=== PATIENT | male | born 1995 | race Caucasian/White ===

== ENCOUNTER 2025-06-08 14:47 | Outpatient (RCR) | payer OTHER, SELFPAY | END 2025-07-08 23:59 | disposition home or self-care (01) | LOC: SPT 14:47 | PROVIDERS: Visit Provider Internal Medicine | DX: S32.012D Unstable burst fracture of first lumbar vertebra, subsequent encounter for fracture with routine healing (principal); X58.XXXD Exposure to other specified factors, subsequent encounter | CPT/HCPCS: 97110; 97161 ==

== ENCOUNTER 2025-06-13 17:25 | Emergency (ER) | payer OTHER, SELFPAY ==
--- OUTSIDE RECORDS SUMMARY | 2024-10-02 03:00 | XMS_ITS ---
Author Organization [facility] [place] Address [address] [place] [address] Care Team Providers Care Manager Mechanical Maintenance Name Role Phone Irvin Dunn Primary Care Provider REASON FOR VISIT 1 week f/u Social History Sex Assigned At : Social History Observation Description Sex Assigned At Male Encounters Encounter Location Date Provider Diagnosis [facility] [place] [address] [place] [address] 10/02/2024 Irvin Dunn Plan Of Treatment No Information Progress Notes * Gigi FORTEDOB:1994 (30 yo M)Acc No.[id number]:10/02/2024 Progress Note Patient: Coco Gigi cage Provider: Michelle Dunn DO :1995 A ge:29 Y S ex:Male Date:10/02/2024 Address:[address] [place] [phone], [id number] Subjective: * Chief Complaints: * 1 week f/u Care Plan Details* * Electronic signature of Bautista Dunn DO on 06/13/2025 at 02:30 PM AKDT Sign off status: Pending * Provider: Michelle Dunn DO Date: 1 12/02/2023 Generated for Juhi lee/Nikolay/eTransmitting on: 0 06/13/2025 02:30 PM DEMETRA
[2025-06-13 17:30] VITALS: BP 104/75; PULSE 98; RESP 14; TEMP 36.9; O2SAT 98; BMI 31.8
--- OUTSIDE RECORDS SUMMARY | 2025-06-13 17:31 | XMS_ITS | Encounter Summary ---
Author Organization [facility] Address [address] [place] [address] Care Team Providers Care Caustic Strength Inspector Name Role Phone Unavailable Primary Care Provider Unavailabl e Encounter Details Date Type Department Care Team (Late st Contact Info) Description 06/12/2025 External Device Data [facility] [facility]CTION Provider, Abstract NO ADDRESS ON FILE Social History Tobacco Use Types Packs/Day Years Used Date Smoking Tobacco: Never Alcohol Use Standard Drinks/Week Comments Never 0 (1 standard drink = 0.6 oz pur e alcohol) Sex and Gender Information Value Date Recorded Sex Assigned at Not on file Legal Sex Male 12:19 PM CDT Gender Identity Not on file Sexual Orientation Not on file documented as of this encounter Plan of Treatment Upcoming Encounters Date Type Department Care Team (Late st Contact Info) Description 07/30/2025 11:30 AM CDT Office Visit [facility] [address] [place] [phone] Yeison Gómez PA [address] [place] [phone] documented as of this encounter Visit Diagnoses Not on filedocumented in this encounter
--- OUTSIDE RECORDS SUMMARY | 2025-06-13 17:31 | XMS_ITS | Encounter Summary ---
Author Organization [facility] Address [address] [place] [address] Care Team Providers Care Legal Support Manager Name Role Phone Unavailable Primary Care Provider Unavailabl e Reason for Visit * Reason Comments Med Refill Encounter Details Date Type Department Care Team (Late st Contact Info) Description 06/11/2025 Refill [facility] Neurosurgery [address] [place] [phone] Cruz Kaiser MD [address] [place] [phone] Closed unstable burst fracture of first lumbar vertebra, initial encounter ([facility]) Social History Tobacco Use Types Packs/Day Years Used Date Smoking Tobacco: Never Alcohol Use Standard Drinks/Week Comments Never 0 (1 standard drink = 0.6 oz pur e alcohol) Sex and Gender Information Value Date Recorded Sex Assigned at Not on file Legal Sex Male 12:19 PM CDT Gender Identity Not on file Sexual Orientation Not on file documented as of this encounter Miscellaneous Notes * Telephone Encounter - Candida Rubi CMA - 06/11/2025 8:59 AM CDT DOS: 05/15/2025 EO08/15/2025 T12-L2 decompression T10-L3 fusion Last seen: 05/31/2025 Next appointment: 07/30/2025 Last fill: 06/05/2025 documented in this encounter Plan of Treatment Upcoming Encounters Date Type Department Care Team (Late st Contact Info) Description 07/30/2025 11:30 AM CDT Office Visit [facility] Neurosurgery [address] [place] [phone] Yeison Gómez PA [address] [place] [phone] documented as of this encounter Visit Diagnoses Diagnosis Closed unstable burst fracture of first lumbar vertebra, initial encounter ([facility]) documented in this encounter
--- OUTSIDE RECORDS SUMMARY | 2025-06-13 17:31 | XMS_ITS | Patient Health Record ---
Author Organization [facility] Address [address] [address] Care Team Providers Care Tracer Lathe Set Up Operator Name Role Phone Irvin Dunn Primary Care Provider Homero Provider, 40 min template Unavailable Unavailable Allergies No Known Allergies Reason For Referral No Information Medications Medication SIG (Take, Route, Frequency, Duration) Notes Start Date End Date Status lamoTRIgine 25 MG Tablet 1 tablet Orally twice a day; Duration: 14 days 09/27/2024 Active Escitalopram Oxalate 20 MG Tablet 1 tablet Orally Once a day; Duration: 30 days Patient instructed to take 1/2 tablet for first week. Aware of caution needed with SSRI and bipolar disorder. Resuming regimen that was most recently effective for patient. 09/27/2024 Active Social History Tobacco Use: Social History Observation Description Date Details (start date - stop date) Former Smoker 11/08/2012 - 11/08/2021 Sex Assigned At : Social History Observation Description Sex Assigned At Male Social History General Social Info Question Answer Notes Communication Needs Do you have any vision impairment? No Do you have any hearing impairment? No Do you have any speech impairment? No Social Functioning Do you enjoy social interactions? N o Do you suffer from social anxiety? Yes Have you ever used drugs oth er than for medical reasons Have you used drugs other than those for medical reasons? No AUDIT-C (Standard) Did you have a drink containing alcohol in the past year? No Points 0 Interpretation Negative Tobacco Control (Standard) Tobacco use: Former smoker When did you start smoking? 11/08/2012 When did you stop smoking? 11/08/2021 How long has it been since you last smoked? 1-5 years Additional Findings: Tobacco user e-cigarette Family/Social/Cultural Characteristics A re you able to pay for your daily needs? Yes How many people are in your household? 10 Medication Management Patient aware of t he medications they are taking and possible side effects? No Patient aware of any new prescription/medication changes? No Patient understands the results of tests (lab, i maging, etc)? Yes Barriers to medication identified and addressed? No Do you feel safe at home? Do you feel safe at home? Ye s Do you have safe place to live? Yes Sexual Hx: Had sex in the last 12 months (vaginal, o ral, or anal)? No Have you ever had an STD? Yes Mental Health/Substance Use History Have you or any of your family members been hospitalized for any psychiatric problem? No Oral Hygiene Patients rating of current oral hygeine? Bad Patient seen the dentist in last 12 months? No Patient requesting Dental Referral? Yes Advance Directives Patient has an Advance Directives/L iving Will? No Patient has a designated Health Care Power of At [facility]? No Patient has a Do Not Resuscitate (DNR) order? No Advance Directives on file at [facility]? No Vital Signs Heart Rate 77 /min 09/27/2024 Temperature 97.8 degrees Fahrenheit 09/27/2024 Respiratory Rate 16 /min 09/27/2024 Height-cm 182.88 cm 09/27/2024 Oximetry 95 09/27/2024 Blood pressure diastolic 82 mm Hg 09/27/2024 Weight-kg 117.03 kg 09/27/2024 Height 72 in 09/27/2024 Blood pressure systolic 118 mm Hg 09/27/2024 Weight 258 lbs 09/27/2024 BMI 34.99 kg/m2 09/27/2024 Encounters Encounter Location Date Provider Diagnosis [facility] - [place] [address] [address] 09/27/2024 Irvin Dunn Depressed bipolar disorder F31.9 [facility] - [place] [address] [address] 09/26/2024 40 min template Homero Provider Assessments Encounter Date Diagnosis (ICD Code) Assessment Notes Treatment Notes Treatment Clinical Notes Section Notes 09/27/2024 Depressed bipolar disorder (ICD-10 - F31.9) Candid and thorough conversation with the patient regarding his mental health history, as well as his current symptoms. Planning to restart him on Lexapro and Lamictal. Certainly caution must be taken with SSRI and bipolar disorder, however no history of outright brandon, however his description is consistent with potential hypomania. However he did tolerate this combination of medications quite well, and did feel improved on them. Suspect that he is having worsening of his depression due to lack of sunlight and this being his first winter in [place]. Currently without any suicidal plans, does have the occasional thought that he may be better off . His biggest concern is his increased somnolence and his lack of drive. Patient is leaving the state in about 2 weeks. He is to follow-up with me next week for reevaluation of his symptoms. Starting on low-dose Lamictal, and will uptitrate over time. Patient is to find a primary care provider and/or psych provider in [place] so that he may promptly establish care upon his return. The patient was encouraged to call with questions or concerns. Plan Of Treatment No Information Medical (General) History Medical History History ICD Code Anxiety Depression Bipolar
--- OUTSIDE RECORDS SUMMARY | 2025-06-13 17:31 | XMS_ITS | Clinical Summary ---
Author Organization [facility] Address [address] [place] [address] Phone Care Team Providers Care Corsage Maker Name Role Phone Unavailable Primary Care Provider Unavailabl e Allergies Active Allergy Reactions Criticality Noted Date Comments Bupropion Unknown 05/15/2025 Medications escitalopram oxalate (LEXAPRO) 20 mg tablet Take 20 mg by mouth daily. Active lamoTRIgine (LaMICtal) 100 mg tablet Take 100 mg by mouth 2 times daily. Active methocarbamoL (ROBAXIN) 500 mg tablet Take 1 Tablet (500 mg) by mouth 3 times daily as needed for Spasm. 30 Tablet 1 05/23/20 25 Active naloxone (NARCAN) 4 mg/spray [place], Non-Aerosol EMERGENCY USE ONLY: Administer 1 spray (4 mg) in one nostril one time. May repeat in alternating nostrils every 2-3 min until responsive or EMS arrives. 2 Each 3 05/23/20 25 Active oxyCODONE (ROXICODONE) 10 mg tabletIndicat ions:Closed unstable burst fracture of first lumbar vertebra, initial encounter (CMS/[facility]) Take 1 Tablet (10 mg) by mouth every 4 hours as needed for Pain, Severe. Max Daily Amount: 60 mg 30 Tablet 06/11/20 25 Active varenicline tartrate (CHANTIX) 1 mg Tablet Take 1 mg by mouth 2 times daily. 025 Discontinued oxyCODONE (ROXICODONE) 10 mg tabletIndicat ions:Closed unstable burst fracture of first lumbar vertebra, initial encounter (CMS/[facility]),Pos t-op pain,Fall from roof, initial encounter Take 1 Tablet (10 mg) by mouth every 4 hours as needed for Pain. Max Daily Amount: 60 mg 05/18/20 25 025 Discontinued enoxaparin (LOVENOX) 40 mg/0.4 mL injection Inject 0.4 mL (40 mg) by subcutaneous injection every 24 hours. 05/18/20 25 025 Discontinued diazePAM (VALIUM) 2 mg tabletIndicat ions:Closed unstable burst fracture of first lumbar vertebra, initial encounter ([facility]),Pos t-op pain,Fall from roof, initial encounter Take 1 Tablet (2 mg) by mouth 4 times daily as needed for Spasm or Discomfort. 05/18/20 025 Discontinued oxyCODONE (ROXICODONE) 10 mg tabletIndicat ions:Closed unstable burst fracture of first lumbar vertebra, initial encounter ([facility]) Take 1 Tablet (10 mg) by mouth every 4 hours as needed for Pain, Severe. Max Daily Amount: 60 mg 30 Tablet 05/23/20 25 025 Discontinued(R eorder) acetaminophen (TYLENOL) 500 mg tablet Take 2 Tablets (1,000 mg) by mouth every 8 hours for 14 days. 84 Tablet 05/23/20 25 025 sennosides-do cusate sodium (SENNA-S) 8.6-50 mg tablet Take 2 Tablets by mouth 2 times daily for 10 days. 40 Tablet 05/23/20 25 025 oxyCODONE (ROXICODONE) 10 mg tabletIndicat ions:Closed unstable burst fracture of first lumbar vertebra, initial encounter ([facility]) Take 1 Tablet (10 mg) by mouth every 4 hours as needed for Pain, Severe. Max Daily Amount: 60 mg 30 Tablet 05/31/20 25 025 Discontinued(R eorder) oxyCODONE (ROXICODONE) 10 mg tabletIndicat ions:Closed unstable burst fracture of first lumbar vertebra, initial encounter ([facility]) Take 1 Tablet (10 mg) by mouth every 4 hours as needed for Pain, Severe. Max Daily Amount: 60 mg 30 Tablet 06/05/20 25 025 Discontinued(R eorder) Active Problems Problem Noted Date Diagnosed Date Fall from roof 05/15/2025 Acute midline thoracic back pain 05/15/2025 Paresthesia of bilateral legs 05/15/2025 T12 burst fracture 05/15/2025 Closed unstable burst fracture of first lumbar v ertebra 05/15/2025 Resolved Problems Problem Noted Date Diagnosed Date Resolved Date Thoracic spinal cord injury, initial encounter 05/18/2025 05/21/2025 Encounters Date Type Department Care Team Description 06/13/2025 External Device Data [facility] ABSTRACTION Provider, Abstract 06/12/2025 External Device Data [facility] ABSTRACTION Provider, Abstract 06/12/2025 External Device Data [facility] ABSTRACTION Provider, Abstract 06/11/2025 [facility] Neurosurgery [address] [place] [phone] Cruz Kaiser MD Closed unstable burst fracture of first lumbar vertebra, initial encounter ([facility]) [facility] Neurosurgery [address] [place] [phone] Cruz Kaiser MD Closed unstable burst fracture of first lumbar vertebra, initial encounter ([facility]) 06/05/2025 [facility] Neurosurgery [address] [place] [phone] Keegan Dow MD Closed unstable burst fracture of first lumbar vertebra, initial encounter ([facility]) 06/04/2025 [facility] Physical Med and Rehab [facility] [address] [place] [address] Jostin Carmen MD 05/31/2025 12:00 PM CDT Ancillary Procedure [facility] Spine and Pain Radiology [address] [place] [phone] Leatha Sweet, LATIN PROFESSOR T12 burst fracture ([facility]); S/P spinal surgery 05/31/2025 11:55 AM CDT Ancillary Procedure [facility] Spine and Pain Radiology [address] [place] [phone] Leatha Sweet FNP Pain of left heel 05/31/2025 11:15 AM CDT Office Visit [facility] Neurosurgery [address] [place] [address] Leatha Sweet, LATIN PROFESSOR T12 burst fracture ([facility]) (Primary Dx); S/P spinal surgery; Pain of left heel 05/31/2025 Refill [facility] Neurosurgery [address] [place] [phone] Keegan Dow MD Closed unstable burst fracture of first lumbar vertebra, initial encounter ([facility]) 05/23/2025 External Device Data [facility] ABSTRACTION Provider, Abstract 05/23/2025 External Device Data [facility] ABSTRACTION Provider, Abstract 05/23/2025 External Device Data [facility] ABSTRACTION Provider, Abstract 05/23/2025 External Device Data [facility] ABSTRACTION Provider, Abstract 05/22/2025 External Device Data [facility] ABSTRACTION Provider, Abstract 05/18/2025 7:20 PM CDT - 05/23/2025 10:52 AM CDT Hospital Encounter [facility] [address] [place] [phone] Jostin Carmen MD Closed unstable burst fracture of first lumbar vertebra ([facility]) Discharge Disposition: Home or Self Care 05/16/2025 Travel 05/15/2025 1:59 PM CDT Anesthesia Event [facility] Operating Room [address] [place] [phone] Pepe Ann MD Sabini, Margaret M, CRNA 05/15/2025 1:24 PM CDT - 05/15/2025 6:29 PM CDT Surgery [facility] Operating Room [facility] [place] [phone] Barry Thibodeaux MD THORACIC TO LUMBAR FUSION POSTERIOR 05/15/2025 12:19 PM CDT - 05/18/2025 7:10 PM CDT Hospital Encounter [facility] Neuro [facility] [address] [place] [phone] Luis Angel Foster MD Scarrow, Alan M, MD Fall from roof Discharge Disposition: Rehab Facility IP 05/15/2025 1:15 AM CDT - 05/15/2025 11:59 PM CDT Hospital Encounter [facility] Emergency Medical Services [facility] [address] [place] [address] Ambulance, [facility] Social History Tobacco Use Types Packs/Day Years Used Date Smoking Tobacco: Never Tobacco Cessation:Counseling Given: No Alcohol Use Standard Drinks/Week Comments Never 0 (1 standard drink = 0.6 oz pur e alcohol) Sex and Gender Information Value Date Recorded Sex Assigned at Not on file Legal Sex Male 12:19 PM CDT Gender Identity Not on file Sexual Orientation Not on file Last Filed Vital Signs Vital Sign Reading Time Taken Comments Blood Pressure 124/82 05/31/2025 11:19 AM CDT Pulse 70 05/23/2025 5:00 AM CDT Temperature 36.6 C (97.9 F) 05/23/2025 5:00 AM CDT Respiratory Rate 16 05/23/2025 5:00 AM CDT Oxygen Saturation 94% 05/23/2025 5:00 AM CDT Inhaled Oxygen Concentration - - Weight 114.8 kg (253 lb) 05/31/2025 11:19 AM CDT Height 182.9 cm (6') 05/31/2025 11:19 AM CDT Body Mass Index 34.31 05/31/2025 11:19 AM CDT Plan of Treatment Upcoming Encounters Date Type Department Care Team (Late st Contact Info) Description 07/30/2025 11:30 AM CDT Office Visit [facility] Neurosurgery [address] [place] [address] Yeison Gómez PA [address] [place] [address] Health Maintenance Due Date Last Done Comments DTAP/TDAP/TD VACCINES (6 - Tdap) 2008 11/16/2001, 10/09/1998, 03/26/1998, Additional history exists HPV VACCINES (1 - Male 3-dos e series) 2012 Preventative Visit- Commercial 11/08/2024 INFLUENZA VACCINE (#1) 2025 HEPATITIS B VACCINES Completed 03/26/1998, 1997, 1997 Medical Devices Implanted Type Area News Anchor Device Identifier Shelf Expiration Date Model / Serial / Lot Hemostatic Surgiflo 8ml W/ Thrombin 2994 - [id number] Implanted:Qty : 1 on 05/15/2025 by Barry Thibodeaux MD at [facility] Hemostatic N/A: Spine Lumbar [employer] [id number] 07/08/2026 2994 / / [id number] Hemostatic Surgiflo 8ml W/ Thrombin 2994 - [id number] Implanted:Qty : 1 on 05/15/2025 by Barry Thibodeaux MD at [facility] Hemostatic N/A: Spine Lumbar [employer] [id number] 09/07/2025 2994 / / [id number] Hemostatic Surgiflo 8ml W/ Thrombin 2994 - [id number] Implanted:Qty : 1 on 05/15/2025 by Barry Thibodeaux MD at [facility] Hemostatic N/A: Spine Lumbar [employer] [id number] 09/07/2025 2994 / / [id number] Jarett Cdh Ccm 5.7q626xb Strt Perc [id number] - [id number] Implanted:Qty : 1 on 05/15/2025 by Barry Thibodeaux MD at [facility] Jarett N/A: Spine Lumbar [employer] [id number] / / Jarett Cdh Ccm 5.3h149au Strt Perc [id number] - [id number] Implanted:Qty : 1 on 05/15/2025 by Barry Thibodeaux MD at [facility] Jarett N/A: Spine Lumbar [employer] [id number] / / Screw Cdh 6.5x50mm 5.5/6.0 Sv Ats [id number] - [id number] Implanted:Qty : 1 on 05/15/2025 by Barry Thibodeaux MD at [facility] Screw N/A: Spine Lumbar [employer] 05/15/2030 [id number] / / [id number] Screw Cdh 6.5x50mm 5.5/6.0 Sv Ats [id number] - [id number] Implanted:Qty : 1 on 05/15/2025 by Barry Thibodeaux MD at [facility] Screw N/A: Spine Lumbar [employer] 05/15/2030 [id number] / / [id number] Screw Cdh 6.5x50mm 5.5/6.0 Sv Ats [id number] - [id number] Implanted:Qty : 1 on 05/15/2025 by Barry Thibodeaux MD at [facility] Screw N/A: Spine Lumbar [employer] 05/15/2030 [id number] / / [id number] Set Screw Solera Voyager 5.5/6.0mm 8440198 - [id number] Implanted:Qty : 1 on 05/15/2025 by Barry Thibodeaux MD at [facility] Screw N/A: Spine Lumbar [employer] 05/15/2030 [id number] / / [id number] AIN-02 Set Screw Solera Voyager 5.5/6.0mm 1609825 - [id number] Implanted:Qty : 1 on 05/15/2025 by Barry Thibodeaux MD at [facility] Screw N/A: Spine Lumbar [employer] 05/15/2030 [id number] / / [id number] AIN-02 Set Screw Solera Voyager 5.5/6.0mm [id number] - [id number] Implanted:Qty : 1 on 05/15/2025 by Barry Thibodeaux MD at [facility] Screw N/A: Spine Lumbar [employer] 05/15/2030 [id number] / / [id number] AIN-02 Set Screw Solera Voyager 5.5/6.0mm 5040101 - [id number] Implanted:Qty : 1 on 05/15/2025 by Barry Thibodeaux MD at [facility] Screw N/A: Spine Lumbar [employer] 05/15/2030 [id number] / / [id number] AIN-02 Set Screw Solera Voyager 5.5/6.0mm 0476821 - [id number] Implanted:Qty : 1 on 05/15/2025 by Barry Thibodeaux MD at [facility] Screw N/A: Spine Lumbar [employer] 05/15/2030 [id number] / / [id number] AIN-02 Set Screw Solera Voyager 5.5/6.0mm 9018018 - [id number] Implanted:Qty : 1 on 05/15/2025 by Barry Thibodeaux MD at [facility] Screw N/A: Spine Lumbar [employer] 05/15/2030 [id number] / / [id number] AIN-02 Set Screw Solera Voyager 5.5/6.0mm 1573028 - [id number] Implanted:Qty : 1 on 05/15/2025 by Barry Thbiodeaux MD at [facility] Screw N/A: Spine Lumbar [employer] 05/15/2030 [id number] / / [id number] AIN-02 Set Screw Solera Voyager 5.5/6.0mm 1006442 - [id number] Implanted:Qty : 1 on 05/15/2025 by Barry Thibodeaux MD at [facility] Screw N/A: Spine Lumbar [employer] 05/15/2030 [id number] / / [id number] AIN-02 Screw Cdh 5.5x50mm 5.5/6.0 Sv Ats [id number] - [id number] Implanted:Qty : 1 on 05/15/2025 by Barry Thibodeaux MD at [facility] Screw N/A: Spine Lumbar [employer] 05/15/2030 [id number] / / [id number] Screw Cdh 5.5x45mm 5.5/6.0 Sv Ats [id number] - [id number] Implanted:Qty : 1 on 05/15/2025 by Barry Thibodeaux MD at [facility] Screw N/A: Spine Lumbar [employer] 05/27/2030 [id number] / / [id number] Screw Cdh 5.5x45mm 5.5/6.0 Sv Ats [id number] - [id number] Implanted:Qty : 1 on 05/15/2025 by Barry Thibodeaux MD at [facility] Screw N/A: Spine Lumbar [employer] 05/09/2030 [id number] / / [id number] Screw Cdh 5.5x45mm 5.5/6.0 Sv Ats [id number] - [id number] Implanted:Qty : 1 on 05/15/2025 by Barry Thibodeaux MD at [facility] Screw N/A: Spine Lumbar [employer] 05/15/2030 [id number] / / [id number] Screw Cdh 5.5x45mm 5.5/6.0 Sv Ats [id number] - [id number] Implanted:Qty : 1 on 05/15/2025 by Barry Thibodeaux MD at [facility] Screw N/A: Spine Lumbar [employer] 05/15/2030 [id number] / / [id number] Allograft Putty Influx Dbm 10ml Iflx-Pt-10 - [id number] Implanted:Qty : 1 on 05/15/2025 by Barry Thibodeaux MD at [facility] Tissue N/A: Spine Lumbar [employer] 01/01/2028 IFLX-PT-10 / [id number] / Procedures Procedure Name Priority Date/Time Associated Diagnosis Comments XR THORACOLUMBAR SPINE 2 VW Routine 05/31/2025 12:03 PM CDT T12 burst fracture (CMS/HCC) S/P spinal surgery XR CALCANEUS 2+ VW LEFT Routine 05/31/2025 12:03 PM CDT Pain of left heel TELEMETRY REPORT 05/22/2025 11:0 4 AM CDT COMPREHENSIVE METABOLIC PANEL Routine 05/19/2025 4:40 AM CDT CBC WITHOUT DIFFERENTIAL Routine 05/19/2025 4:40 AM CDT MRI CERVICAL WO CONTRAST Routine 05/17/2025 9:57 AM CDT BASIC METABOLIC PANEL Routine 05/17/2025 2:40 AM CDT CBC WITH DIFFERENTIAL Routine 05/17/2025 2:40 AM CDT BASIC METABOLIC PANEL Routine 05/16/2025 5:31 AM CDT CBC WITH DIFFERENTIAL Routine 05/16/2025 5:31 AM CDT POC GLUCOSE Routine 05/15/2025 11:51 PM CDT XR THORACOLUMBAR SPINE 1 VW Routine 05/15/2025 9:21 PM CDT POC GLUCOSE Routine 05/15/2025 9:06 PM CDT XR FLUORO LESS THAN 1 HOUR Stat 05/15/2025 9:00 PM CDT WI ANES INSERT CATH, ART, PERCUT, SHORTTERM Routine 05/15/2025 2:59 PM CDT WI ANES INSERT ENDOTRACHEAL AIRWAY Routine 05/15/2025 2:36 PM CDT INTRAOP NEUROPHYSIO MONITORING Routine 05/15/2025 1:57 PM CDT LAMINOTOMY 05/15/2025 1:24 PM CDT SPINAL COMPUTER ASSISTED NAVIGATION 05/15/2025 1:24 PM CDT THORACIC TO LUMBAR FUSION POSTERIOR 05/15/2025 1:24 PM CDT VERIFICATION BLOOD GROUP Stat 05/15/2025 1:04 PM CDT CTA NECK W AND/OR WO CONTRAST Stat 05/15/2025 1:[address] HEAD WO CONTRAST Stat 05/15/2025 1 [address] CHEST ABDOMEN PELVIS W CONT Stat 05/15/2025 12:[address] CERVICAL SPINE WO CONTRAST Stat 05/15/2025 12:59 PM CDT TYPE AND SCREEN Stat 05/15/2025 12:27 PM CDT TEG-TRAUMA Stat 05/15/2025 12:27 PM CDT PTT Stat 05/15/2025 12:27 PM CDT PROTIME-INR Stat 05/15/2025 12:27 PM CDT LACTIC ACID Stat 05/15/2025 12:27 PM CDT ETHANOL LEVEL Stat 05/15/2025 12:27 PM CDT COMPREHENSIVE METABOLIC PANEL Stat 05/15/2025 12:27 PM CDT CBC WITH DIFFERENTIAL Stat 05/15/2025 12:27 PM CDT CRITICAL CARE Routine 05/15/2025 12:19 PM CDT from Last 3 Months Results * XR THORACOLUMBAR SPINE 2 VW (05/31/2025 12:03 PM CDT) Anatomical Region Laterality Modality Spine Computed Radiogr aphy 05/31/2025 12:0 3 PM CDT Impressions 05/31/2025 5:30 PM CDT IMPRESSION: Please see below. Exam: XR THORACOLUMBAR SPINE 2 VW Date/Time of Exam: 05/31/2025 12:03 PM Reason For Exam: See Diagnosis. Diagnosis: T12 burst fracture (CMS/HCC); S/P spinal surgery. Findings: AP and lateral upright views of the thoracolumbar spine demonstrate posterior spinal fusion T10-L3 spanning a moderate burst fracture of L1 with retropulsion of the posterior superior endplate of L1 with anterior listhesis of T12 on L1. Moderate degenerative disc space narrowing L3-4 and L4-5. Less than grade 1 anterolisthesis of L5 on S1. IMPRESSION: 1. As above. Narrative Procedure Note Coco Huber MD - 05/31/2025 IMPRESSION: Please see below. Exam: XR THORACOLUMBAR SPINE 2 VW Date/Time of Exam: 05/31/2025 12:03 PM Reason For Exam: See Diagnosis. Diagnosis: T12 burst fracture (CMS/HCC); S/P spinal surgery. Findings: AP and lateral upright views of the thoracolumbar spine demonstrate posterior spinal fusion T10-L3 spanning a moderate burst fracture of L1 with retropulsion of the posterior superior endplate of L1 with anterior listhesis of T12 on L1. Moderate degenerative disc space narrowing L3-4 and L4-5. Less than grade 1 anterolisthesis of L5 on S1. IMPRESSION: 1. As above. Leatha Brianda Sweet LATIN PROFESSOR DIAGNOSTIC IMAGING ORDERA BLES Final Result * XR CALCANEUS 2+ VW LEFT (05/31/2025 12:03 PM CDT) Anatomical Region Laterality Modality Ankle / Foot Computed Radiogr aphy 05/31/2025 12:0 3 PM CDT Impressions 05/31/2025 4:03 PM CDT IMPRESSION: See below. EXAM: XR CALCANEUS 2+ VW LEFT DATE/TIME OF EXAM: 05/31/2025 12:03 PM REASON FOR STUDY: See Diagnosis DIAGNOSIS: Pain of left heel PRIORS: None FINDINGS: No acute fracture or subluxation. No periostitis or osseous erosion. IMPRESSION: No acute osseous abnormality. Narrative Procedure Note Denzel Hernandez MD - 05/31/2025 IMPRESSION: See below. EXAM: XR CALCANEUS 2+ VW LEFT DATE/TIME OF EXAM: 05/31/2025 12:03 PM REASON FOR STUDY: See Diagnosis DIAGNOSIS: Pain of left heel PRIORS: None FINDINGS: No acute fracture or subluxation. No periostitis or osseous erosion. IMPRESSION: No acute osseous abnormality. Leatha Sweet LATIN PROFESSOR DIAGNOSTIC IMAGING ORDERA BLES Final Result * TELEMETRY REPORT (05/22/2025 11:04 AM CDT) Provider Scanning ECG ORDERABLES Final Result * (ABNORMAL) CBC WITHOUT DIFFERENTIAL (05/19/2025 4:40 AM CDT) [facility] WBC 8.4 4.5 - 11.0 K/uL 05/19/2025 9:18 AM [facility] RBC 4.14(L) 4.60 - 6.20 M/uL 05/19/2025 9:18 AM [facility] HEMOGLOBIN 12.6(L) 14.0 - 18.0 g/dL 05/19/2025 9:18 AM [facility] HEMATOCRIT 36.2(L) 41.0 - 53.0 % 05/19/2025 9:18 AM [facility] MCV 87.4 84.0 - 103.0 fL 05/19/2025 9:18 AM [facility] MCH 30.4 27.0 - 34.0 pg 05/19/2025 9:18 AM [facility] MCHC 34.8 30.0 - 35.0 g/dL 05/19/2025 9:18 AM [facility] PLATELETS 254 140 - 440 K/uL 05/19/2025 9:18 AM [facility] MPV 10.5 8.9 - 12.8 fL 05/19/2025 9:18 AM [facility] RDW 12.3 11.0 - 14.5 % 05/19/2025 9:18 AM [facility] RDW-STDEV 39.1 37.0 - 54.0 fL 05/19/2025 9:18 AM [facility] Blood Collection / Unknown 05/19/2025 4:40 AM CDT 05/19/2025 9:07 AM CDT us Jostin Carmen MD HEMATOLOGY ORDERABLES Kim katharine Result [facility] CLIA # [id number] [address] [address] [place] [address] * (ABNORMAL) COMPREHENSIVE METABOLIC PANEL (05/19/2025 4:40 AM CDT) Only the most recent of2 resultswithin the time period is included. SODIUM 133(L) 136 - 145 mmol/L 05/19/2025 9:33 AM CDT [facility] POTASSIUM 4.1 3.5 - 5.1 mmol/L 05/19/2025 9:33 AM CDT [facility] CHLORIDE 95(L) 98 - 107 mmol/L 05/19/2025 9:33 AM CDT [facility] CO2 25 22 - 29 mmol/L 05/19/2025 9:33 AM CDT [facility] CALCIUM 9.5 8.6 - 10.0 mg/dL 05/19/2025 9:33 AM CDT [facility] BUN 13 6 - 20 mg/dL 05/19/2025 9:33 AM T [facility] CREATININE 0.68 0.67 - 1.17 mg/dL 05/19/2025 9:33 AM T [facility] GLUCOSE 140(H) 74 - 99 mg/dL 05/19/2025 9:33 AM CDT [facility] TOTAL PROTEIN 6.6 6.4 - 8.3 g/dL 05/19/2025 9:33 AM CDT [facility] ALBUMIN 3.8 3.5 - 5.2 g/dL 05/19/2025 9:33 AM CDT [facility] BILIRUBIN TOTAL 1.0 0.0 - 1.0 mg/dL 05/19/2025 9:33 AM T [facility] ALKALINE PHOSPHATASE 61 40 - 129 U/L 05/19/2025 9:33 AM CDT [facility] AST 55(H) 10 - 50 U/L 05/19/2025 9:33 AM CDT [facility] ALT 44 <=50 U/L 05/19/2025 9:33 AM CDT [facility] GFR >60 >=60 mL/min/1.7 3 sq meter 05/19/2025 9:33 AM CDT [facility] Comment:eGFR calculated with 2020 CKD-EPI equation. Vegetarian diet, extremely high or low muscle mass, and may affect results. Cystatin C with Glomerular Filtration Rate is a suitable alternative for these patients. ANION GAP 13 9 - 20 mmol/L 05/19/2025 9:33 AM CDT [facility] Blood Collection / Unknown 05/19/2025 4:40 AM CDT 05/19/2025 9:07 AM CDT us Jostin Carmen MD CHEMISTRY ORDERABLES Final Result [facility] CLIA # [id number] [address] [place] [id number] * MRI CERVICAL WO CONTRAST (05/17/2025 9:57 AM CDT) Anatomical Region Laterality Modality Spine Magnetic Resonan ce 05/17/2025 9:57 AM CDT Impressions 05/17/2025 10:02 AM CDT IMPRESSION: Please see below. Exam: MRI CERVICAL WO CONTRAST Date/Time of Exam: 05/17/2025 9:57 AM Reason For Exam: Fall with spine fracture and distracting injury. Rule out ligamentous injury. Diagnosis: T12 burst fracture (CMS/HCC). Technique: MRI of the cervical spine was performed without the administration of intravenous contrast. Findings: There is no spondylolisthesis or marrow edema. The cervical ligaments appear intact. No epidural hematoma or abnormal cord signal. No significant edema within the paraspinous soft tissues. No abnormal prevertebral soft tissue fluid collection. C2-3: Unremarkable. C3-4: Unremarkable. C4-5: Small central disc protrusion mildly narrows the spinal canal. C5-6: Small central disc protrusion mildly narrows the spinal canal. C6-7: Unremarkable. C7-T1: Unremarkable. IMPRESSION: 1. No evidence of injury within the cervical spine. 2. Small disc protrusions resulting in mild spinal stenosis at C4-5 and C5-6. Narrative Procedure Note Bradford Eric MD - 05/17/2025 IMPRESSION: Please see below. Exam: MRI CERVICAL WO CONTRAST Date/Time of Exam: 05/17/2025 9:57 AM Reason For Exam: Fall with spine fracture and distracting injury. Rule out ligamentous injury. Diagnosis: T12 burst fracture (CMS/HCC). Technique: MRI of the cervical spine was performed without the administration of intravenous contrast. Findings: There is no spondylolisthesis or marrow edema. The cervical ligaments appear intact. No epidural hematoma or abnormal cord signal. No significant edema within the paraspinous soft tissues. No abnormal prevertebral soft tissue fluid collection. C2-3: Unremarkable. C3-4: Unremarkable. C4-5: Small central disc protrusion mildly narrows the spinal canal. C5-6: Small central disc protrusion mildly narrows the spinal canal. C6-7: Unremarkable. C7-T1: Unremarkable. IMPRESSION: 1. No evidence of injury within the cervical spine. 2. Small disc protrusions resulting in mild spinal stenosis at C4-5 and C5-6. Yeison LEAL MR ORDERABLES Final Result * (ABNORMAL) CBC WITH DIFFERENTIAL (05/17/2025 2:40 AM CDT) Only the most recent of3 resultswithin the time period is included. WBC 7.7 4.5 - 11.0 K/uL 05/17/2025 2:59 AM CDT [facility] RBC 3.77(L) 4.60 - 6.20 M/uL 05/17/2025 2:59 AM CDT [facility] HEMOGLOBIN 11.5(L) 14.0 - 18.0 g/dL 05/17/2025 2:59 AM [facility] HEMATOCRIT 33.4(L) 41.0 - 53.0 % 05/17/2025 2:59 AM [facility] MCV 88.6 84.0 - 103.0 fL 05/17/2025 2:59 AM [facility] MCH 30.5 27.0 - 34.0 pg 05/17/2025 2:59 AM [facility] MCHC 34.4 30.0 - 35.0 g/dL 05/17/2025 2:59 AM [facility] PLATELETS 166 140 - 440 K/uL 05/17/2025 2:59 AM [facility] MPV 10.2 8.9 - 12.8 fL 05/17/2025 2:59 AM [facility] RDW 12.6 11.0 - 14.5 % 05/17/2025 2:59 AM [facility] RDW-STDEV 40.3 37.0 - 54.0 fL 05/17/2025 2:59 AM [facility] NEUTROPHILS 77(H) 42 - 75 % 05/17/2025 2:59 AM [facility] LYMPHOCYTES 15(L) 24 - 44 % 05/17/2025 2:59 AM [facility] MONOCYTES 8 2 - 10 % 05/17/2025 2:59 AM [facility] EOSINOPHILS 0 0 - 7 % 05/17/2025 2:59 AM [facility] BASOPHILS 0 0 - 1 % 05/17/2025 2:59 AM [facility] IMMATURE GRANULOCYTES 0 0 - 2 % 05/17/2025 2:59 AM [facility] NEUTROPHIL ABSOLUTE 5.90 2.00 - 8.00 K/uL 05/17/2025 2:59 AM [facility] LYMPHOCYTE ABSOLUTE 1.19(L) 1.20 - 4.00 K/uL 05/17/2025 2:59 AM [facility] MONOCYTE ABSOLUTE 0.58 0.10 - 0.60 K/uL 05/17/2025 2:59 AM CDT [facility] EOSINOPHIL ABSOLUTE 0.01 0.00 - 0.70 K/uL 05/17/2025 2:59 AM CDT [facility] BASOPHILS ABSOLUTE 0.01 0.00 - 0.20 K/uL 05/17/2025 2:59 AM CDT [facility] IMMATURE GRANULOCYTES ABSOLUTE 0.03 0.00 - 0.10 K/uL 05/17/2025 2:59 AM CDT [facility] SMEAR REVIEWED: NA - Not Applicable 05/17/2025 2:59 AM CDT [facility] Blood Venipuncture / Unknown 05/17/2025 2:40 AM CDT 05/17/2025 2:50 AM CDT us Yeison LEAL HEMATOLOGY ORDERABLES Final Res ult [facility] CLIA # [id number] [address] [place] [address] * (ABNORMAL) BASIC METABOLIC PANEL (05/17/2025 2:40 AM CDT) Only the most recent of2 resultswithin the time period is included. SODIUM 134(L) 136 - 145 mmol/L 05/17/2025 3:25 AM CDT [facility] POTASSIUM 4.1 3.5 - 5.1 mmol/L 05/17/2025 3:25 AM CDT [facility] CHLORIDE 100 98 - 107 mmol/L 05/17/2025 3:25 AM CDT [facility] CO2 23 22 - 29 mmol/L 05/17/2025 3:25 AM CDT [facility] CALCIUM 8.5(L) 8.6 - 10.0 mg/dL 05/17/2025 3:25 AM CDT [facility] BUN 10 6 - 20 mg/dL 05/17/2025 3:25 AM CDT [facility] CREATININE 0.66(L) 0.67 - 1.17 mg/dL 05/17/2025 3:25 AM CDT [facility] GLUCOSE 148(H) 74 - 99 mg/dL 05/17/2025 3:25 AM CDT [facility] GFR >60 >=60 mL/min/1. 73 sq meter 05/17/2025 3:25 AM CDT [facility] Comment:eGFR calculated with 2020 CKD-EPI equation. Vegetarian diet, extremely high or low muscle mass, and may affect results. Cystatin C with Glomerular Filtration Rate is a suitable alternative for these patients. ANION GAP 11 9 - 20 mmol/L 05/17/2025 3:25 AM CDT [facility] Blood Venipuncture / Unknown 05/17/2025 2:40 AM CDT 05/17/2025 2:50 AM CDT us Yeison LEAL CHEMISTRY ORDERABLES Final Resu lt Performing Organization Address [facility]/ZIP Co de Phone Number [facility] CLIA # [id number] [address] [address] * (ABNORMAL) POC GLUCOSE (05/15/2025 11:51 PM CDT) Only the most recent of2 resultswithin the time period is included. GLUCOSE POC 170(H) 74 - 99 mg/dL 05/15/2025 11:51 PM CDT [facility] SPECIMEN SOURCE, GLUCOSE POC Capillary 05/15/2025 11:51 PM CDT [facility] Blood, whole 05/15/2025 11:5 1 PM CDT 05/16/2025 12:00 AM CDT Barry Thibodeaux MD POINT OF CARE TESTING Final Re sult [facility] CLIA # [id number] [address] [address] [facility] [place] [address] * XR THORACOLUMBAR SPINE 1 VW (05/15/2025 9:21 PM CDT) Anatomical Region Laterality Modality Spine Computed Radiogr aphy 05/15/2025 9:30 PM CDT Impressions 05/16/2025 4:13 PM CDT IMPRESSION: One saved image. 31 seconds of fluoroscopy time. Lateral view of the thoracolumbar spine. Narrative 05/16/2025 4:13 PM CDT Exam: XR THORACOLUMBAR SPINE 1 VW Date/Time of Exam: 05/15/2025 9:21 PM Reason For Exam: Other - Please see comments, Comment: intra-op. Diagnosis: T12 burst fracture (CMS/HCC). Comparison: None. Procedure Note Connor Alvarado MD - 05/16/2025 Exam: XR THORACOLUMBAR SPINE 1 VW Date/Time of Exam: 05/15/2025 9:21 PM Reason For Exam: Other - Please see comments, Comment: intra-op. Diagnosis: T12 burst fracture (CMS/HCC). Comparison: None. IMPRESSION: One saved image. 31 seconds of fluoroscopy time. Lateral view of the thoracolumbar spine. us Barry Thibodeaux MD DIAGNOSTIC IMAGING ORDERABLES Final Result * XR FLUORO LESS THAN 1 HOUR (05/15/2025 9:00 PM CDT) Narrative 05/15/2025 9:26 PM CDT Order information only. Exam was auto-finalized. us Barry Thibodeaux MD DIAGNOSTIC IMAGING ORDERABLES Final Result * WI ANES INSERT CATH, ART, PERCUT, SHORTTERM (05/15/2025 2:59 PM CDT) Narrative Spencer Ugarte II, DO - 05/15/2025 2:59 PM CDT Spencer Ugarte II, DO 05/15/2025 3:00 PM Arterial Line Insertion Patient location during procedure: OR Staffing Performed: Anesthesiologist (/) Authorized by: Spencer Ugarte II, DO Performed by: Spencer Ugarte II, DO time out called Patient was prepped and draped in usual sterile fashion Indications: hemodynamic monitoring Hand hygiene performed prior to procedure Sterile Barriers: gloves, cap and mask Preparation: skin prepped with ChloraPrep Skin prep agent dried: skin prep agent completely dried prior to procedure Patient position: flat Location: right radial modified Seldinger technique used Catheter size: 20 G Catheter Length (in.): 2 Goddard Identification: palpation technique Number of attempts: 1 Assessment: blood return through port Procedure uneventful Post-procedure: dressing applied and line secured Comments: Sterile technique, sterile dressing, tape secured. Spencer Ugarte II, DO PROCEDURE/MINOR LEWIS RGICAL ORDERABLES Final Result * WI ANES INSERT ENDOTRACHEAL AIRWAY (05/15/2025 2:36 PM CDT) Narrative Surekha Manriquez CRNA - 05/15/2025 2:36 PM CDT Surekha Manriquez CRNA 05/15/2025 4:05 PM Airway Date/Time: 05/15/2025 2:36 PM Location: OR Plan: routine intubation Patient Identity Confirmed by: Verbally with patient and armband Airway: not difficult Staffing Performed: MICROBIOLOGICAL ANALYST/CAA Authorized by: Spencer Ugarte II, DO Performed by: Surekha Manriquez CRNA Indications and Patient Condition: Indications for Airway Management: Anesthesia Sedation Level: general anesthesia Preoxygenated: yes Patient Position: Sniffing Mask Difficulty Assessment: 1 - vent by mask Plan to extubate at end of case: Yes Final Airway Details: Final Airway Type: Endotracheal airway ETT Cuffed: Yes Technique Used for Successful ETT Placement: Video laryngoscopy Devices/Methods Used in Placement: Intubating stylet Reason for advanced technique: pre-op assessment Blade Size: 4 Insertion Site: Oral ETT Size (mm): 8.0 Video Laryngoscopy Devices: GlideScope Measured from: Teeth ETT to Teeth (cm): 22 Tube secured with: Tape Placement Verified by: auscultation, end tidal CO2 and chest rise Cormack-Lehane Classification: Grade I - full view of glottis Number of Attempts at Approach: 1 Additional Procedure Information: atraumatic and dentition unchanged (secured; teeth/mouth as per preop) Spencer Ugarte II, PROCEDURE/MINOR LEWIS RGICAL ORDERABLES Final Result * VERIFICATION BLOOD GROUP (05/15/2025 1:04 PM CDT) ABO GROUP A 05/15/2025 1:29 PM CDT [facility] [place] RH (D) TYPE Positive 05/15/2025 1:29 PM CDT [facility] [place] Blood Venipuncture / Unknown 05/15/2025 1:04 PM CDT 05/15/2025 1:09 PM CDT Bradford Abdi Jr., MD BLOOD BANK ORDERABLES F inal Result [facility] [place] CLIA#[id number] [address] [place] [address], * CTA NECK W AND/OR WO CONTRAST (05/15/2025 1:01 PM CDT) Anatomical Region Laterality Modality Neck Computed Tomogra phy 05/15/2025 12:4 4 PM CDT Impressions 05/15/2025 1:16 PM CDT IMPRESSION: 1. No evidence of acute arterial injury in the neck. 2. Other findings, as above. Narrative 05/15/2025 1:16 PM CDT EXAM: CTA NECK W AND/OR WO CONTRAST DATE/TIME OF EXAM: 05/15/2025 1:01 PM REASON FOR STUDY: Trauma DIAGNOSIS: See Reason for Exam COMPARISON: Same-day CONTRAST: IOPAMIDOL 61 % INTRAVENOUS SOLUTION (MULTI-DOSE BULK PACK) Given:100 mL, IOPAMIDOL 61 % INTRAVENOUS SOLUTION (MULTI-DOSE BULK PACK) Given:80 mL TECHNIQUE: CTA of the neck was performed following the administration of intravenous contrast. Post-processing was performed, including sagittal and coronal reformations and 3-D MIP reconstruction. FINDINGS: AORTIC ARCH ATHEROSCLEROSIS GRADE: none AORTIC ARCH: three vessel SUBCLAVIAN ARTERIES: No significant stenosis or occlusion. CERVICAL VERTEBRAL ARTERIES: Patent extracranial segments. No dissection. RIGHT CCA AND CERVICAL ICA: No significant stenosis or significant plaque. No dissection. LEFT CCA AND CERVICAL ICA: No significant stenosis or significant plaque. No dissection. Refer to separately performed and separately dictated same day CTs for findings in the head, cervical spine, chest, abdomen and pelvis. Procedure Note Sary Kaiser MD - 05/15/2025 EXAM: CTA NECK W AND/OR WO CONTRAST DATE/TIME OF EXAM: 05/15/2025 1:01 PM REASON FOR STUDY: Trauma DIAGNOSIS: See Reason for Exam COMPARISON: Same-day CONTRAST: IOPAMIDOL 61 % INTRAVENOUS SOLUTION (MULTI-DOSE BULK PACK) Given:100 mL, IOPAMIDOL 61 % INTRAVENOUS SOLUTION (MULTI-DOSE BULK PACK) Given:80 mL TECHNIQUE: CTA of the neck was performed following the administration of intravenous contrast. Post-processing was performed, including sagittal and coronal reformations and 3-D MIP reconstruction. FINDINGS: AORTIC ARCH ATHEROSCLEROSIS GRADE: none AORTIC ARCH: three vessel SUBCLAVIAN ARTERIES: No significant stenosis or occlusion. CERVICAL VERTEBRAL ARTERIES: Patent extracranial segments. No dissection. RIGHT CCA AND CERVICAL ICA: No significant stenosis or significant plaque. No dissection. LEFT CCA AND CERVICAL ICA: No significant stenosis or significant plaque. No dissection. Refer to separately performed and separately dictated same day CTs for findings in the head, cervical spine, chest, abdomen and pelvis. IMPRESSION: 1. No evidence of acute arterial injury in the neck. 2. Other findings, as above. us Bradford Abdi Jr., MD CT ORDERABLES Final R esult * CT HEAD WO CONTRAST (05/15/2025 1:01 PM CDT) Anatomical Region Laterality Modality Head Computed Tomogra phy 05/15/2025 12:3 7 PM CDT Impressions 05/15/2025 1:09 PM CDT IMPRESSION: No CT evidence of an acute intracranial process. Posterior scalp swelling and hematoma formation. This patient has a STAT name RHUBARB UNKNOWN and prior imaging is not available for correlation/comparison at this time. An addendum can be made to this report at a later time if prior imaging studies become available under the patient's actual name. Narrative 05/15/2025 1:09 PM CDT EXAM: CT HEAD WO CONTRAST DATE/TIME OF EXAM: 05/15/2025 1:01 PM REASON FOR STUDY: Trauma DIAGNOSIS: See Reason for Exam COMPARISON: None Available TECHNIQUE: CT head performed without contrast. FINDINGS: No evidence of an acute territorial infarct, parenchymal hemorrhage, hydrocephalus or abnormal extra-axial fluid collection. No midline shift. Basilar cisterns remain patent. No mastoid effusion. No paranasal sinus fluid level. No calvarial fracture. Posterior scalp swelling and hematoma formation. Procedure Note Sary Kaiser MD - 05/15/2025 EXAM: CT HEAD WO CONTRAST DATE/TIME OF EXAM: 05/15/2025 1:01 PM REASON FOR STUDY: Trauma DIAGNOSIS: See Reason for Exam COMPARISON: None Available TECHNIQUE: CT head performed without contrast. FINDINGS: No evidence of an acute territorial infarct, parenchymal hemorrhage, hydrocephalus or abnormal extra-axial fluid collection. No midline shift. Basilar cisterns remain patent. No mastoid effusion. No paranasal sinus fluid level. No calvarial fracture. Posterior scalp swelling and hematoma formation. IMPRESSION: No CT evidence of an acute intracranial process. Posterior scalp swelling and hematoma formation. This patient has a STAT name RHUBARB UNKNOWN and prior imaging is not available for correlation/comparison at this time. An addendum can be made to this report at a later time if prior imaging studies become available under the patient's actual name. us Bradford Abdi Jr., MD CT ORDERABLES Final R esult * CT CHEST ABDOMEN PELVIS W CONT (05/15/2025 12:59 PM CDT) Anatomical Region Laterality Modality Chest Computed Tomogra phy 05/15/2025 12:4 9 PM CDT Impressions 05/15/2025 1:39 PM CDT Impression: 1. Bibasilar atelectasis. 2. No evidence of any pulmonary contusion. Contiguous axial images were obtained through the abdomen and pelvis. Sagittal and coronal reformatted images are included. The study was performed following a CT of the chest utilizing the same contrast bolus. A burst fracture is present involving L1 vertebral body. There is prominent posterior displacement of fracture fragments which are displaced to the posterior aspect of the spinal canal. There is moderate loss of vertebral body height. The liver is diffusely hypodense consistent with diffuse hepatic fatty infiltration. No focal hepatic lesions are seen. There is no evidence of any abdominal aortic aneurysm or dissection. The appendix is visualized and is unremarkable in appearance. There is no evidence of any abnormal contrast extravasation from the renal collecting systems, ureters or urinary bladder. The spleen, pancreas, kidneys and adrenals are unremarkable. There is no evidence of any abnormal soft tissue mass, adenopathy or abnormal free fluid collections in the abdomen or pelvis. Bowel loops are nondilated. There is no evidence of any free intraperitoneal air. Impression: 1. L1 burst fracture with prominent posterior displacement of fracture fragments extending to the posterior aspect of the spinal canal. 2. Diffuse hepatic fatty infiltration. Narrative 05/15/2025 1:39 PM CDT Exam: CT CHEST ABDOMEN PELVIS W CONT Date/Time of Exam: 05/15/2025 12:59 PM Reason For Exam: Trauma Diagnosis: See Reason for Exam Contiguous axial images were obtained through the chest. Sagittal and coronal reformatted images are included. 100 mL of Isovue-300 was given intravenously. Lymph nodes in the mediastinum all measure under 1 cm along their short axis. There is no evidence of any abnormal soft tissue masses in the chest. There is no evidence of any thoracic aortic aneurysm or dissection. No mediastinal hematoma. Atelectasis is present in the lung bases. There is no evidence of any pulmonary infiltrate or contusion. There is no evidence of any pleural effusion or other abnormal fluid collections. No pneumothorax is seen. No acute fractures or dislocations are seen. Procedure Note Teddy Leach MD - 05/15/2025 Exam: CT CHEST ABDOMEN PELVIS W CONT Date/Time of Exam: 05/15/2025 12:59 PM Reason For Exam: Trauma Diagnosis: See Reason for Exam Contiguous axial images were obtained through the chest. Sagittal and coronal reformatted images are included. 100 mL of Isovue-300 was given intravenously. Lymph nodes in the mediastinum all measure under 1 cm along their short axis. There is no evidence of any abnormal soft tissue masses in the chest. There is no evidence of any thoracic aortic aneurysm or dissection. No mediastinal hematoma. Atelectasis is present in the lung bases. There is no evidence of any pulmonary infiltrate or contusion. There is no evidence of any pleural effusion or other abnormal fluid collections. No pneumothorax is seen. No acute fractures or dislocations are seen. Impression: 1. Bibasilar atelectasis. 2. No evidence of any pulmonary contusion. Contiguous axial images were obtained through the abdomen and pelvis. Sagittal and coronal reformatted images are included. The study was performed following a CT of the chest utilizing the same contrast bolus. A burst fracture is present involving L1 vertebral body. There is prominent posterior displacement of fracture fragments which are displaced to the posterior aspect of the spinal canal. There is moderate loss of vertebral body height. The liver is diffusely hypodense consistent with diffuse hepatic fatty infiltration. No focal hepatic lesions are seen. There is no evidence of any abdominal aortic aneurysm or dissection. The appendix is visualized and is unremarkable in appearance. There is no evidence of any abnormal contrast extravasation from the renal collecting systems, ureters or urinary bladder. The spleen, pancreas, kidneys and adrenals are unremarkable. There is no evidence of any abnormal soft tissue mass, adenopathy or abnormal free fluid collections in the abdomen or pelvis. Bowel loops are nondilated. There is no evidence of any free intraperitoneal air. Impression: 1. L1 burst fracture with prominent posterior displacement of fracture fragments extending to the posterior aspect of the spinal canal. 2. Diffuse hepatic fatty infiltration. us Bradford Abdi Jr., MD CT ORDERABLES Final R esult * CT CERVICAL SPINE WO CONTRAST (05/15/2025 12:59 PM CDT) Anatomical Region Laterality Modality Spine Computed Tomogra phy 05/15/2025 12:4 0 PM CDT Impressions 05/15/2025 1:18 PM CDT IMPRESSION: No acute cervical spine fracture. Narrative 05/15/2025 1:18 PM CDT EXAM: CT CERVICAL SPINE WO CONTRAST DATE/TIME OF EXAM: 05/15/2025 12:59 PM REASON FOR STUDY: Trauma DIAGNOSIS: See Reason for Exam COMPARISON: None TECHNIQUE: CT cervical spine without intravenous contrast. Coronal and sagittal reformatted images were provided. FINDINGS: BONES: No acute cervical spine fracture. ALIGNMENT: Within normal limits. SOFT TISSUES: No prevertebral soft tissue swelling. OTHER: Visualized lung apices are clear. Procedure Note Magarik, Sary Karley Dima, MD - 05/15/2025 EXAM: CT CERVICAL SPINE WO CONTRAST DATE/TIME OF EXAM: 05/15/2025 12:59 PM REASON FOR STUDY: Trauma DIAGNOSIS: See Reason for Exam COMPARISON: None TECHNIQUE: CT cervical spine without intravenous contrast. Coronal and sagittal reformatted images were provided. FINDINGS: BONES: No acute cervical spine fracture. ALIGNMENT: Within normal limits. SOFT TISSUES: No prevertebral soft tissue swelling. OTHER: Visualized lung apices are clear. IMPRESSION: No acute cervical spine fracture. Bradford Abdi Jr., MD CT ORDERABLES Final R esult * TEG-TRAUMA (05/15/2025 12:27 PM CDT) [facility] CITRATED KAOLIN REACTION TIME (CK-R) 4.6 4.6 - 9.1 min 05/15/2025 1:42 PM CDT [facility] CITRATED RAPID MAXIMUM AMPLITUDE (GIRLS SWIMMING COACH-MA) 62.5 52.0 - 70.0 mm 05/15/2025 1:42 PM CDT [facility] CITRATE FUNCTIONAL FIBRINOGEN MAXIMUM AMPLITUDE (CF 18.2 15.0 - 32.0 mm 05/15/2025 1:42 PM CDT [facility] LY30(LYSIS) 0.5 0.0 - 3.0 % 05/15/2025 1:42 PM CDT [facility] Blood Venipuncture / Unknown 05/15/2025 12:27 PM CDT 05/15/2025 12:38 PM CDT Narrative [facility] - 05/15/2025 1:42 PM CDT For TEG result interpretation guidance, please review results in TEG In Flight Crew Member. For [place], refer to [email or web address]. For Maxime Toribio or [place], refer to [email or web address]. Bradford Abdi Jr., MD HEMATOLOGY ORDERABLES F inal Result Performing Organization Address City/State/[facility] Co de Phone Number [facility] CLIA # [id number] [address] [address] [place], [place] [address] * LACTIC ACID (05/15/2025 12:27 PM CDT) LACTIC ACID 1.4 <=2.0 mmol/L 05/15/2025 1:10 PM CDT [facility] Blood Venipuncture / Unknown 05/15/2025 12:27 PM CDT 05/15/2025 12:45 PM CDT Bradford Abdi Jr., MD CHEMISTRY ORDERABLES Fi nal Result Performing Organization Address [facility] Co de Phone Number [facility] CLIA # [id number] [address] [address] [place] [address] * (ABNORMAL) PTT (05/15/2025 12:27 PM CDT) PTT 23.3(L) 24.8 - 37.2 seconds 05/15/2025 1:02 PM CDT [facility] Blood Venipuncture / Unknown 05/15/2025 12:27 PM CDT 05/15/2025 12:38 PM CDT Narrative [facility] - 05/15/2025 1:02 PM CDT Therapeutic Range: Hi-level PE/DVT heparin protocol 80.1 - 95.0 sec Lo-level PE/DVT heparin protocol 70.1 - 85.0 sec Cardiac Heparin Protocol 70.1 - 100.0 sec Bradford Abdi Jr., MD HEMATOLOGY ORDERABLES F inal Result Performing Organization Address [facility]/ZIP Co de Phone Number [facility] CLIA # [id number] [address] [address] [place] [address] * PROTIME-INR (05/15/2025 12:27 PM CDT) Pathologist [facility] PROTIME 14.3 12.7 - 14.9 Seconds 05/15/2025 1:02 PM CDT [facility] INR 1.1 0.8 - 1.2 05/15/2025 1:02 PM CDT [facility] Blood Venipuncture / Unknown 05/15/2025 12:27 PM CDT 05/15/2025 12:38 PM CDT [facility] - 05/15/2025 1:02 PM CDT Expected Values for INR: DVT/PE Goal INR 2.5; range 2.0 - 3.0 Valve Replacement Tissue Goal INR 2.5; range 2.0 - 3.0 Valve Replacement Mechanical Goal INR 3.0; range 2.5 - 3.5 POST-AK Goal INR 2.5; range 2.0 - 3.0 or Goal INR 3.0; range 2.5 - 3.5 Atrial Fibrillation Goal INR 2.5; range 2.0 - 3.0 Ischemic Stroke Goal INR 2.5; range 2.0 - 3.0 Bradford Abdi Jr., MD HEMATOLOGY ORDERABLES F inal Result [facility] [id number] [address] [place] [address] * TYPE AND SCREEN (05/15/2025 12:27 PM CDT) Pathologist [facility] ABO GROUP A 05/15/2025 2:10 PM CDT [facility] RH (D) TYPE Positive 05/15/2025 2:10 PM CDT [facility] ANTIBODY SCREEN Negative 05/15/2025 2:10 PM CDT [facility] Blood Venipuncture / Unknown 05/15/2025 12:27 PM CDT 05/15/2025 12:39 PM CDT Bradford Abdi Jr., MD BLOOD BANK ORDERABLES E dited Result - Final Performing Organization Address [facility] Co de Phone Number [facility] Akermin [facility] CLIA#[id number] [address] [place] [address], * ETHANOL LEVEL (05/15/2025 12:27 PM CDT) Pathologist [facility] [place] ETHANOL <10.10 <10.10 mg/dL 05/15/2025 1:21 PM CDT [facility] Akermin [facility] ETHANOL % <0.01 <=0.01 %w/v 05/15/2025 1:21 PM CDT [facility] Akermin [facility] Blood Venipuncture / Unknown 05/15/2025 12:27 PM CDT 05/15/2025 12:42 PM CDT Bradford Abdi Jr., MD CHEMISTRY ORDERABLES Fi nal Result Performing Organization Address [facility] Co de Phone Number [facility]ermin [facility] [id number] [address] [address] * Critical Care (05/15/2025 12:19 PM CDT) Narrative Luis Angel Foster MD - 05/15/2025 12:19 PM CDT Luis Angel Foster MD 05/16/2025 1:37 PM Critical Care Performed by: Luis Angel Foster MD Authorized by: Luis Angel Foster MD Critical care provider statement: Critical care time (minutes): 35 Critical care time was exclusive of: Teaching time and separately billable procedures and treating other patients Critical care was necessary to treat or prevent imminent or life-threatening deterioration of the following conditions: Trauma Critical care was time spent personally by me on the following activities: Blood draw for specimens, ordering and performing treatments and interventions, ordering and review of laboratory studies, development of treatment plan with patient or surrogate, evaluation of patient's response to treatment, re-evaluation of patient's condition, discussions with consultants, ordering and review of radiographic studies, pulse oximetry, examination of patient, review of old charts and obtaining history from patient or surrogate I assumed direction of critical care for this patient from another provider in my specialty: no Care discussed with: admitting provider us Luis Angel Foster MD PROCEDURE/MINOR SURGIC AL ORDERABLES Final Result from Last 3 Months [facility] Advance Directives For more information, please contact: [phone] * Full Code (Latest Code Status on File) Date Activated Date Inactivated Comments 05/18/2025 7:26 PM 05/23/2025 12:57 PM * Default Full Code - Needs Discussion Date Activated Date Inactivated Comments 05/16/2025 10:46 AM 05/18/2025 7:20 PM
--- OUTSIDE RECORDS SUMMARY | 2025-06-13 17:31 | XMS_ITS | Encounter Summary ---
Author Organization [facility] Address [address] [place] [address] Care Team Providers Care Digital Operations Analyst Name Role Phone Unavailable Primary Care Provider Unavailabl e Encounter Details Date Type Department Care Team (Late st Contact Info) Description 06/13/2025 External Device Data STL ABSTRACTION [...] Description 07/30/2025 11:30 AM CDT Office Visit [facility] [address] [place] [phone] Yeison Gómez PA [address] [place] [phone] documented as of this encounter Visit Diagnoses Not on filedocumented in this encounter
--- OUTSIDE RECORDS SUMMARY | 2025-06-13 17:31 | XMS_ITS | Encounter Summary ---
Author Organization [facility] Address [address] [place] [address] Care Team Providers Care High Man Name Role Phone Unavailable Primary Care Provider [...] Description 07/30/2025 11:30 AM CDT Office Visit [facility] [address] [place] [phone] Yeison Gómez PA [address] [place] [phone] documented as of this encounter Visit Diagnoses Not on filedocumented in this encounter
--- OUTSIDE RECORDS SUMMARY | 2025-06-13 17:31 | XMS_ITS | Encounter Summary ---
Author Organization [facility] Address [address] [place] [address] Care Team Providers Care Surgery Attendant Name Role Phone Unavailable Primary Care Provider Unavailabl e Reason for Visit * Reason Onset Date Comments Medication Refill 06/09/2025 Encounter Details Date Type Department Care Team (Late st Contact Info) Description 06/09/2025 Refill [facility] [address] [place] [phone] Cruz Kaiser MD [address] [place] [phone] Closed unstable burst fracture of first lumbar vertebra, initial encounter (CMS/[facility]) Social History Tobacco Use Types Packs/Day [...] Encounter - Candida Rubi CMA - 06/11/2025 8:17 AM CDT DOS: 05/15/2025 EO08/15/2025 T12-L2 decompression T10-L3 fusion Last seen: 05/31/2025 Next appointment: 07/30/2025 Last fill: 06/05/2025 documented in this encounter Plan of Treatment Upcoming Encounters Date Type Department Care Team (Late st Contact Info) Description 07/30/2025 11:30 AM CDT Office Visit [facility] [address] [place] [phone] Yeison Gómez PA [address] [place] [phone] documented as of this encounter Visit Diagnoses Diagnosis Closed unstable burst fracture of first lumbar vertebra, initial encounter (CMS/[facility]) documented in this encounter
--- NOTE | 2025-06-13 17:41 | W.ED.DIZZY ---
HPI - Dizziness General: Chief Complaint: Dizziness Stated Complaint: Dizzy on and off had meds in physical therapy Time Seen by Provider: 06/13/25 17:35 History of Present Illness: HPI Narrative: Patient is a 30-year-old gentleman that fell off of a roof suffering a lumbar fracture, currently in physical therapy. Today he was at physical therapy, and had persistently low blood pressure in the 80s systolic. He was encouraged to drink water. He is lightheaded and dizzy, and sweaty. His 90s degree weather outside as well. Patient states today maybe he did not have as much water as he normally does. This happens happened another time. He is not currently on any pain medications. Denies any other symptoms other than mild lightheadedness, low blood pressure. Associated symptoms: Denies chest pain, chills, headache(s), nausea, palpitations or vomiting Associated neuro symptoms: Deny numbness in extremities Related Data Previous Rx's ?Medication ?Instructions ?Recorded escitalopram oxalate 20 mg tablet 20 mg PO DAILY #30 tabs 04/16/25 (Lexapro) lamotrigine 100 mg tablet 100 mg PO BID #60 tabs 04/16/25 varenicline tartrate 1 mg tablet 1 mg PO BID #56 tabs 04/16/25 Allergies Allergy/AdvReac Type Severity Reaction Status Date / Time bupropion (From Wellbutrin) AdvReac Made Verified 06/13/25 17:34 psychotic after using for a while. Review of Systems Const: Denies: fever(s) or chills Eyes: Denies: change in vision or blurry vision ENMT: Denies: throat pain or mouth pain Card: Denies: chest pain or palpitations Resp: Denies: dyspnea or non-productive cough GI: Denies: abdominal pain, nausea or vomiting : Denies: flank pain or difficulty urinating Musc: Denies: neck pain or extremity pain Neuro: Denies: headache(s), numbness in extremities or weakness in extremities Psych: Denies: anxiety or depression PFS ED PFSH: Medical History (Updated 06/13/25 @ 19:29 by ELVIS Jo) Psychiatric care Physical Exam Const: COMMON NORMALS: no acute distress, average body habitus and patient oriented x3 HENMT: COMMON NORMALS: normocephalic and atraumatic HEAD & SCALP: normocephalic and atraumatic Resp: COMMON NORMALS: normal respiratory effort and clear to auscultation bilaterally AUSCULTATION: clear to auscultation bilaterally Cardio: COMMON NORMALS: regular rate and regular rhythm RATE: regular rate RHYTHM: regular rhythm GI: COMMON NORMALS: Normal to inspection, nondistended, normoactive bowel sounds present and Soft to palpation PALPATION: Yes Soft to palpation : COMMON NORMALS: Yes no CVA tenderness BLADDER/KIDNEY EXAM: Yes no CVA tenderness Back/Pelvis: COMMON NORMALS: no CVA tenderness Neuro: COMMON NORMALS: patient oriented x3 Psych: COMMON NORMALS: mental status grossly normal, Normal thought process present, cooperative, normal affect and speech normal SPEECH: Yes normal speech THOUGHT PROCESS: Normal thought process present Course Vital Signs: Vital signs: Vital Signs Temperature 98.4 F 06/13/25 17:30 Pulse Rate 77 06/13/25 19:44 Respiratory Rate 18 06/13/25 19:44 Blood Pressure 138/82 06/13/25 19:44 Pulse Oximetry 95 06/13/25 19:44 Oxygen Delivery Me thod Room Air 06/13/25 17:30 MDM - Dizziness Medical Decision Making Patient appears to have a decrease in volume today, however this was a sitting blood pressure in the 80s. He did not appear to be orthostatic at physical therapy. He did have lightheadedness, and dizziness prior to standing with blood pressure in the 80s. Patient be given IV fluid bolus, and routine evaluation with differentials including infectious, hypotension related to dehydration, and endocrine with a cortisol baseline obtained. Further evaluation as per results. Lab Data 06/13/25 18:02 06/13/25 18:02 Laboratory Results WBC 6.92 10^3/uL (3.29-11.43) 06/13/25 18:02 RBC 4.60 10^6/uL (3.85-5.65) 06/13/25 18:02 Hgb 13.00 g/dL (11.27-16.99) 06/13/25 18:02 Hct 39.9 % (37-53) 06/13/25 18: MCV 86.7 fl (82-101) 06/13/25 18: MCH 28.3 pg (27-33) 06/13/25 18:02 MCHC 32.6 g/dL (30-55) 06/13/25 18:02 RDW 11.9 % (12.1-15.1) L 06/13/25 18:02 Plt Count 363 10^3/cmm (157-399) 06/13/25 18:02 MPV 9.9 fL (7.4-10.4) 06/13/25 18:02 Neut % (Auto) 78.3 % 06/13/25 18:02 Lymph % (Auto) 14.5 % 06/13/25 18:02 Mcintosh % (Auto) 5.5 % 06/13/25 18:02 Eos % (Auto) 0.7 % 06/13/25 18:02 Baso % (Auto) 0.3 % 06/13/25 18:02 Neut # (Auto) 5.42 10^3/uL (1.8-7.7) 06/13/25 18:02 Lymph # (Auto) 1.0 10^3/uL (0.8-4.8) 06/13/25 18:02 Mcintosh # (Auto) 0.4 10^3/uL (0.2-0.9) 06/13/25 18:02 Eos # (Auto) 0.1 10^3/uL (0.0-0.8) 06/13/25 18:02 Baso # (Auto) 0.0 10^3/uL (0.0-0.1) 06/13/25 18:02 Nucleated RBC % (auto) 0 % 06/13/25 18:02 Nucleated RBCs # 0.0 /100WBC 06/13/25 18:02 Sodium 139 mmol/L (136-145) 06/13/25 18:02 Potassium 4.6 mmol/L (3.5-5.1) 06/13/25 18:02 Chloride 100 mmol/L (98-107) 06/13/25 18:02 Carbon Dioxide 23 mmol/L (22-29) 06/13/25 18:02 Anion Gap 20.6 (5-19) H 06/13/25 18:02 BUN 12 mg/dL (6-20) 06/13/25 18:02 Creatinine 1.0 mg/dL (0.7-1.2) 06/13/25 18:02 GFR Calculation 89.0 mL/min (90-130) L 06/13/25 18:02 Glucose 147 mg/dL (65-115) H 06/13/25 18:02 Calculated Osmolality 290 mOsm/kg (285-295) 06/13/25 18:02 Lactic Acid 1.5 mmol/L (0.5-2.2) 06/13/25 18:02 Calcium 10.0 mg/dL (8.5-10.5) 06/13/25 18: Total Bilirubin 0.5 mg/dL (0.15-1.2) 06/13/25 18:02 AST 8 U/L (0-40) 06/13/25 18:02 ALT 10 U/L (0-41) 06/13/25 18:02 Alkaline Phosphatase 135 U/L (40-130) H 06/13/25 18:02 Total Protein 7.6 g/dL (6.6-8.7) 06/13/25 18:02 Albumin 4.3 g/dL (3.5-5.2) 06/13/25 18:02 Globulin 3.3 g/dL (1.3-4.6) 06/13/25 18:02 TSH 1.64 uIU/mL (0.27-4.20) 06/13/25 18:02 Random Cortisol 36.41 ug/dL (2.47-19.5) H 06/13/25 18:02 Urine Color Dark yellow (Yellow) A 06/13/25 18:42 Urine Appearance Clear (CLEAR) 06/13/25 18:42 Urine pH 6.0 (5-7) 06/13/25 18:42 Ur Specific Harbert 1.029 (1.005-1.030) 06/13/25 18:42 Urine Protein 1+ (Negative) A 06/13/25 18:42 Urine Glucose (UA) Negative (Normal) 06/13/25 18:42 Urine Ketones Trace (Negative) 06/13/25 18:42 Urine Blood Negative (Negative) 06/13/25 18:42 Urine Nitrate Negative (Negative) 06/13/25 18:42 Urine Bilirubin Negative (Negative) 06/13/25 18:42 Urine Urobilinogen 1.0 mg/dL (Negative) 06/13/25 18:42 Ur Leukocyte Esterase Trace (Negative) A 06/13/25 18:42 Urine RBC 0-2 /hpf (0-2) 06/13/25 18:42 Urine WBC 0-5 /hpf (0-5) 06/13/25 18:42 Ur Squamous Epith Cells 0-5 /hpf (0-5) 06/13/25 18:42 Amorphous Sediment Not Reportable 06/13/25 18:42 Urine Bacteria None seen /hpf (NONE) 06/13/25 18:42 Hyaline Casts 31.03 /lpf 06/13/25 18:42 Urine Mucus 2+ /hpf 06/13/25 18:42 No radiology studies performed this visit Discharge Plan Discharge Patient Disposition: Home Clinical Impression: Orthostatic hypotension Condition: Stable Prescriptions: No Action escitalopram oxalate [Lexapro] 20 mg tablet 20 mg PO DAILY Qty: 30 2RF lamotrigine 100 mg tablet 100 mg PO BID Qty: 60 2RF varenicline tartrate 1 mg tablet 1 mg PO BID Qty: 56 2RF Discharge Orders: Discharge ED (Routine); Ordered 06/13/25 Ordered By: Leeann Cristobal Discharge Diet: Usual diet Discharge Activity: Limit activity as instructed Patient Instructions: Hypotension (ED), Patient Portal & Liz Instructions Activity Restrictions/Additional Instructions: Take blood pressure daily, increase fluid intake of noncaffeinated beverages If you feel lightheaded or dizzy, sit down and drink more noncaffeinated beverages Return to ED for further issues with low blood pressure, fever greater 100.4 Print Language: Georgian Coding Level of Care Code ED Manager Retail Sales for Gabriel Dacosta
[2025-06-13 18:07] VITALS: BP 136/82; PULSE 90; RESP 16; O2SAT 95
[2025-06-13 18:10] LABS: Hematocrit 39.9 % (37-53); Hemoglobin 13.00 g/dL (11.27-16.99); Mean Corpuscular HGB Conc 32.6 g/dL (30-55); Mean Corpuscular Hemoglobin 28.3 pg (27-33); Mean Corpuscular Volume 86.7 fl (82-101); Nucleated Red Blood Cells % 0 %; Platelet Count 363 10^3/cmm (157-399); Red Blood Count 4.60 10^6/uL (3.85-5.65); White Blood Count 6.92 10^3/uL (3.29-11.43)
[2025-06-13 18:30] VITALS: BP 130/76; PULSE 86; RESP 16; O2SAT 96
[2025-06-13 18:30] LABS: Lactic Sepsis W/Reflex 1.5 mmol/L (0.5-2.2)
[2025-06-13 18:40] LABS: Alanine Aminotransferase 10 U/L (0-41); Albumin Level 4.3 g/dL (3.5-5.2); Alkaline Phosphatase 135 U/L (40-130); Anion Gap 20.6 (5-19); Aspartate Amino Transferase 8 U/L (0-40); Blood Urea Nitrogen 12 mg/dL (6-20); Calcium 10.0 mg/dL (8.5-10.5); Carbon Dioxide 23 mmol/L (22-29); Chloride 100 mmol/L (98-107); Creatinine Clr Calc Pharmacy 138.7518; Globulin 3.3 g/dL (1.3-4.6); Glucose 147 mg/dL (65-115); Osmolality Calculated 290 mOsm/kg (285-295); Potassium 4.6 mmol/L (3.5-5.1); Sodium 139 mmol/L (136-145); Thyroid Stimulating Hormone 1.64 uIU/mL (0.27-4.20); Total Protein 7.6 g/dL (6.6-8.7)
[2025-06-13 18:49] LABS: Glucose Urine UA Negative (Normal); Nitrate Urine Negative (Negative); Specific Gravity, Urine 1.029 (1.005-1.030)
[2025-06-13 18:54] LABS: Add Urine Microscopic? YES
[2025-06-13 19:00] VITALS: BP 145/89; PULSE 82; RESP 16; O2SAT 98
[2025-06-13 19:44] VITALS: BP 138/82; PULSE 77; RESP 18; O2SAT 95
== END 2025-06-13 19:45 | disposition home or self-care (01) ==
PROVIDERS: Emergency Provider Physician Assistant
DX: I95.1 Orthostatic hypotension (principal)
CPT/HCPCS: 36415; 80053; 81001; 82533; 83605; 84443; 85025; 87040; 99284; J7030

== ENCOUNTER 2025-10-29 16:35 | Outpatient (CLI) | payer OTHER, SELFPAY | END 2025-10-29 16:36 | disposition home or self-care (01) | LOC: SLEEP 16:35 | PROVIDERS: Referring Provider Family Medicine; Visit Provider Internal Medicine Pulmonary Disease | DX: G47.33 Obstructive sleep apnea (adult) (pediatric) (principal) | CPT/HCPCS: G0399 ==